=== PATIENT | male | born 1940 | race Caucasian/White ===

== ENCOUNTER 2017-06-11 11:08 | Emergency (ER) | payer OTHER ==
[~2017-06-11] VITALS: Ht 182.9 cm; Wt 100.0 kg
[~2017-06-11 11:08] MED LIST: AMLO2.5T PO; ASPI81TA82 PO; ENAL20TA PO; FOLI1TAB PO; ISOS20TA38 PO; METO25 PO; NITR0.4S SL; PYRI100T4 PO; RIVA15 PO; ROSU40 PO
[2017-06-11 11:11] VITALS: BP 147/65; PULSE 58; RESP 20; O2SAT 58; O2SAT 97
[2017-06-11 11:16] VITALS: BP 136/62; PULSE 73; RESP 18; O2SAT 99
[2017-06-11 11:27] VITALS: O2SAT 100
[2017-06-11] MEDS ORDERED: SODIUM CHLORIDE 0.9% FLUSH 10 ML FLUSH IVF PRN (11:30)
--- NOTE | 2017-06-11 11:33 | PD ---
HPI Chief Complaint: Syncope/Near-Syncope Time Seen by Provider: 11:23 Travel History International Travel<30 days: No Contact w/Intl Traveler<30days: No Traveled to known affect area: No History of Present Illness HPI Patient is a 76-year-old male presenting to department via private vehicle for evaluation of a syncopal episode. Patient was in restoration this morning seated in a pew, when he then slumped over in the pew, per his 's report he was not responding. She stated that her son tried to arouse him by shaking his head and he would not respond. Patient states that for the last few days, since night he has not been feeling well. He reports nasal congestion and flulike symptoms, mild shortness of breath and a cough. Denies any fever, nausea, vomiting, abdominal pain. He had one loose stool yesterday and he has felt more tired. Patient's past medical history significant for hypertension, hyperlipidemia, coronary artery disease with stent placement, a [place] 12 years ago , COPD, CHF, GERD, bilateral pulmonary embolisms. Patient denies any chest pain now or prior to the syncopal episode. PFSH Past Medical History Hx Anticoagulant Therapy: Yes (aspirin) Arthritis: Yes Cancer: Yes ( MELANOMA) Cardiac Catheterization: Yes High Cholesterol: Yes Chemotherapy: Yes (5 WEEKS 2004) Congestive Heart Failure: Yes COPD: Yes Cerebrovascular Accident: No Coronary Artery Disease: Yes Diabetes: No Endocrine: No GERD: Yes Genitourinary: No Hypertension: Yes Kidney Stones: No Musculoskeletal: No Neurologic: No Psychiatric: No Reproductive: No Respiratory: No Migraines: No Myocardial Infarction: Yes Radiation Therapy: Yes (2004) Renal Failure: No Seizures: No Sleep Apnea: No Past Surgical History Cardiac Surgery: Yes (3 STENTS PLACED) Other Surgery: Yes (REMOVAL OF EAR MELANOMA, L ANKLE MELANOMA REMOVAL) Family History Family Myocardial Infarction: Yes (MOTHER AND BROTHER 50 WITH [place] ) Social History Alcohol Use: Yes (OCC MIX DRINKS) Tobacco Use: Yes ((1/2) POUCH PER DAY-DIP) Substance Use: No Allergies-Medications (Allergen,Severity, Reaction): Coded Allergies: No Known Allergies (Verified , 06/11/17) Reported Meds & Prescriptions Reported Meds & Active Scripts Active Review of Systems Except as stated in HPI: all other systems reviewed are Neg General / Constitutional: Positive: Other (increased fatigue), No: Fever, Chills HENT: No: Headaches Cardiovascular: No: Chest Pain or Discomfort Respiratory: Positive: Cough, Shortness of Breath Gastrointestinal: Positive: Changes in Bowel Habits, No: Nausea, Vomiting, Abdominal Pain Genitourinary: No: Dysuria Musculoskeletal: No: Myalgias Neurologic: Positive: Weakness, Syncope, No: Focal Abnormalities Physical Exam Narrative GENERAL: Well-developed, well-nourished, alert elderly male. Resting comfortably in no acute distress. SKIN: Warm and dry. HEAD: Atraumatic. Normocephalic. EYES: Pupils equal and round. No scleral icterus. No injection or drainage. ENT: No nasal bleeding or discharge. Mucous membranes pink and moist. NECK: Trachea midline. No JVD. CARDIOVASCULAR: Regular rate and rhythm. RESPIRATORY: No accessory muscle use. Clear to auscultation. Breath sounds equal bilaterally. GASTROINTESTINAL: Abdomen soft, non-tender, nondistended. Hepatic and splenic margins not palpable. Positive bowel sounds, no rebound, no guarding. MUSCULOSKELETAL: Extremities without clubbing, cyanosis, or edema. No obvious deformities. NEUROLOGICAL: Awake and alert. No obvious cranial nerve deficits. Motor grossly within normal limits. Five out of 5 muscle strength in the arms and legs. Normal speech. PSYCHIATRIC: Appropriate mood and affect; insight and judgment normal. Data Data Last Documented VS Vital Signs Date Time Temp Pulse Resp B/P (MAP) Pulse Ox O2 Delivery O2 Flow Rate FiO2 06/11/17 16:49 64 18 138/69 (92) 98 Room Air Orders Orders Complete Blood Count With Diff (06/11/17 11:21) Comprehensive Metabolic Panel (06/11/17 11:21) Magnesium (Mg) (06/11/17 11:21) Ckmb (Isoenzyme) Profile (06/11/17 11:21) Troponin I (06/11/17 11:21) Act Partial Throm Time (Ptt) (06/11/17 11:21) Prothrombin Time / Inr (Pt) (06/11/17 11:21) Urinalysis - C+S If Indicated (06/11/17 11:21) Chest, Single Ap (06/11/17 11:21) Ecg Monitoring (06/11/17 11:21) Iv Access Insert/Monitor (06/11/17 11:21) Oximetry (06/11/17 11:21) Sodium Chloride 0.9% Flush (Ns Flush) (06/11/17 11:30) Ct Brain W/O Iv Contrast(Rout) (06/11/17 ) Influenzae A/B Antigen (06/11/17 11:21) Ct Pulmonary Angiogram (06/11/17 ) Iohexol 350 Inj (Omnipaque 350 Inj) (06/11/17 15:34) Electrocardiogram (06/11/17 11:18) Labs Laboratory Tests Test 06/11/17 11:30 06/11/17 12:10 White Blood Count 6.9 TH/MM3 Red Blood Count 4.73 MIL/MM3 Hemoglobin 15.8 GM/DL Hematocrit 44.8 % Mean Corpuscular Volume 94.8 FL Mean Corpuscular Hemoglobin 33.3 PG Mean Corpuscular Hemoglobin Concent 35.1 % Red Cell Distribution Width 13.7 % Platelet Count 217 TH/MM3 Mean Platelet Volume 8.4 FL Neutrophils (%) (Auto) 73.4 % Lymphocytes (%) (Auto) 13.5 % Monocytes (%) (Auto) 10.5 % Eosinophils (%) (Auto) 1.9 % Basophils (%) (Auto) 0.7 % Neutrophils # (Auto) 5.1 TH/MM3 Lymphocytes # (Auto) 0.9 TH/MM3 Monocytes # (Auto) 0.7 TH/MM3 Eosinophils # (Auto) 0.1 TH/MM3 Basophils # (Auto) 0.0 TH/MM3 CBC Comment DIFF FINAL Differential Comment Prothrombin Time 10.8 SEC Prothromb Time International Ratio 1.0 RATIO Activated Partial Thromboplast Time 25.7 SEC Blood Urea Nitrogen 14 MG/DL Creatinine 1.27 MG/DL Random Glucose 171 MG/DL Total Protein 7.2 GM/DL Albumin 3.5 GM/DL Calcium Level 8.8 MG/DL Magnesium Level 2.1 MG/DL Alkaline Phosphatase 79 U/L Aspartate Amino Transf (AST/SGOT) 19 U/L Alanine Aminotransferase (ALT/SGPT) 23 U/L Total Bilirubin 0.6 MG/DL Sodium Level 139 MEQ/L Potassium Level 4.2 MEQ/L Chloride Level 106 MEQ/L Carbon Dioxide Level 27.2 MEQ/L Anion Gap 6 MEQ/L Estimat Glomerular Filtration Rate 55 ML/MIN Total Creatine Kinase 65 U/L Troponin I LESS THAN 0.02 NG/ML Urine Color YELLOW Urine Turbidity CLEAR Urine pH 5.5 Urine Specific [place] 1.020 Urine Protein TRACE mg/dL Urine Glucose (UA) NEG mg/dL Urine Ketones NEG mg/dL Urine Occult Blood NEG Urine Nitrite NEG Urine Bilirubin NEG Urine Urobilinogen LESS THAN 2.0 MG/DL Urine Leukocyte Esterase NEG Urine RBC LESS THAN 1 /hpf Urine WBC 2 /hpf Urine Squamous Epithelial Cells <1 /hpf Urine Hyaline Casts 1 /lpf Urine Mucus FEW /lpf Microscopic Urinalysis Comment CULT NOT INDICATED MDM Medical Decision Making Medical Screen Exam Complete: Yes Emergency Medical Condition: Yes Medical Record Reviewed: Yes Interpretation(s) Vital Signs Date Time Temp Pulse Resp B/P (MAP) Pulse Ox O2 Delivery O2 Flow Rate FiO2 06/11/17 11:21 58 20 100 Room Air 06/11/17 11:16 73 18 136/62 (86) 99 06/11/17 11:11 58 20 147/65 (92) 97 Room Air Differential Diagnosis Influenza versus cardiac arrhythmia versus metabolic abnormality versus less likely pulmonary embolism versus viral syndrome versus other Narrative Course Patient is a 76-year-old male that was brought to emergency department via private vehicle for evaluation after syncopal episode occurred at restoration just prior to arrival. Patient is mildly bradycardic, he is alert and oriented. Patient placed on telemetry monitoring, continuous pulse oximetry. IV access established. Labs and imaging ordered and pending. at bedside. EKG shows sinus rhythm with a rate of 60, this was read by my attending physician. Chest x-ray read by the radiologist shows no acute disease, CT scan of the brain read by the radiologist shows no acute abnormality. CBC reviewed, no acute findings identified Chemistry with no acute findings, cardiac enzymes are negative 1 set Urinalysis is unremarkable. Patient's initial workup was unremarkable, he will be placed under observation due to syncopal episode. [facility] paged for admission. Discussed with Dr. Royal who felt that due to the unremarkable work-up, that patient would be more suited for discharge at this time. Due to hx of PE, Dr. Mccloud recommended CT pulmonary angiogram be obtained to ensure that this is not the cause of the syncopal episode. Order placed. CT Pulmonary angiogram is negative for PE, pt does have 2 nodules that are recommended to be followed up with a [address] scan of the chest. Pt was ambulated in the ED, he demonstrated safe ambulation and did not experience any dizziness. At this time pt will be discharged home. He is advised to follow up with PCP in 1-2 days. Diagnosis Primary Impression: Syncope Qualified Codes: R55 - Syncope and collapse Referrals: Primary Care Physician 2 days Patient Instructions: General Instructions Additional Instructions: Follow-up with your primary doctor in 1-2 days Maintain adequate fluid intake, rest as needed Return to emergency department for any new or worsening symptoms Med/Other Pt SpecificInfo: No Change to Meds Disposition: 01 DISCHARGE HOME Condition: Stable Zeina Herbert Jun 11, 2017 11:33
--- NOTE | 2017-06-11 11:48 | RADRPT ---
EXAM DATE/TIME: 06/11/2017 11:24 [facility] COMPARISON: CHEST SINGLE AP, October 15, 2014, 21:39. INDICATIONS : Palpitations MEDICAL HISTORY : Cardiovascular disease. SURGICAL HISTORY : Coronary artery stent. ENCOUNTER: Initial ACUITY: 1 day PAIN SCORE: 0/10 LOCATION: chest FINDINGS: Portable AP view of the chest demonstrates a normal-sized cardiac silhouette. No effusion, consolidat ion, or pneumothorax is visualized. The bones and soft tissues demonstrate no acute abnormality. CONCLUSION: No acute cardiopulmonary abnormality is identified. Amado Landaverde MD on June 11, 2017 at 11:46 Board Certified Radiologist. This report was verified electronically.
[2017-06-11 11:52] LABS: AUTOMATED NEUTROPHIL # 5.1 TH/MM3 (1.8-7.7); BASOPHIL % 0.7 % (0.0-2.0); EOSINOPHIL # 0.1 TH/MM3 (0-0.4); EOSINOPHIL % 1.9 % (0.0-4.0); HEMATOCRIT 44.8 % (39.0-51.0); HEMO FLAGS DIFF FINAL; LYMPH % 13.5 % (9.0-44.0); LYMPHOCYTE # 0.9 TH/MM3 (1.0-4.8); MEAN CELL VOLUME 94.8 FL (80.0-100.0); MEAN CORPUSCULAR HEMOGLOBIN 33.3 PG (27.0-34.0); MEAN CORPUSCULAR HGB CONC 35.1 % (32.0-36.0); MONO % 10.5 % (0.0-8.0); NEUT % 73.4 % (16.0-70.0); PLATELET COUNT 217 TH/MM3 (150-450); RED BLOOD COUNT 4.73 MIL/MM3 (4.50-5.90); RED CELL DISTRIBUTION WIDTH 13.7 % (11.6-17.2); WHITE BLOOD COUNT 6.9 TH/MM3 (4.0-11.0)
[2017-06-11 12:02] LABS: APTT (PATIENT) 25.7 SEC (24.3-30.1); PROTHROMBIN TIME - PATIENT 10.8 SEC (9.8-11.6)
--- NOTE | 2017-06-11 12:04 | RADRPT ---
EXAM DATE/TIME: 06/11/2017 11:37 [facility] COMPARISON: No previous studies available for comparison. INDICATIONS : Syncopal episode today. RADIATION DOSE: 40.38 CTDIvol (mGy) ; Patient motion MEDICAL HISTORY : Hypertension. melanoma SURGICAL HISTORY : None. ENCOUNTER: Initial ACUITY: 1 day PAIN SCALE: 0/10 LOCATION: Bilateral head TECHNIQUE: Multiple contiguous axial images were obtained of the head. Using automated exposure control and adj ustment of the mA and/or kV according to patient size, radiation dose was kept as low as reasonably a chievable to obtain optimal diagnostic quality images. DICOM format image data is available electro nically for review and comparison. FINDINGS: There is motion artifact CEREBRUM: The ventricles are within normal limits. No evidence of midline shift, mass lesion, hemorrhage or ac tonto apache infarction. No extra-axial fluid collections are seen. POSTERIOR FOSSA: The cerebellum and brainstem demonstrate no acute finding. The 4th ventricle is midline. The cerebe llopontine angle is unremarkable. EXTRACRANIAL: The sinuses are clear. SKULL: The calvaria is intact. No evidence of skull fracture. CONCLUSION: No acute intracranial abnormality is identified. Amado Landaverde MD on June 11, 2017 at 12:01 Board Certified Radiologist. This report was verified electronically.
[2017-06-11 12:16] LABS: ALKALINE PHOSPHATASE 79 U/L (45-117); ALT (GPT) 23 U/L (12-78); ANION GAP 6 MEQ/L (5-15); AST (GOT) 19 U/L (15-37); BICARBONATE 27.2 MEQ/L (21.0-32.0); BLOOD UREA NITROGEN 14 MG/DL (7-18); CHLORIDE 106 MEQ/L (98-107); GLOMERULAR FILTRATION RATE 55 ML/MIN (>89); MAGNESIUM 2.1 MG/DL (1.5-2.5); POTASSIUM 4.2 MEQ/L (3.5-5.1); SODIUM (NA) 139 MEQ/L (136-145); TOTAL BILIRUBIN ADULT 0.6 MG/DL (0.2-1.0)
[2017-06-11 12:18] LABS: CREATINE KINASE 65 U/L (39-308)
[2017-06-11 12:52] LABS: BLOOD, URINE NEG (NEG); COMMENT (UR) CULT NOT INDICATED; CULTURE IF INDICATED CULT NOT INDICATED; GLUCOSE,URINE NEG (NEG); HYALINE CAST, URINE 1 /lpf (RARE); KETONE, URINE NEG (NEG); MUCUS URINE FEW /lpf (OCC); NITRITE,URINE NEG (NEG); PH, URINE 5.5 (5.0-8.5); SQUAMOUS EPITHELIAL CELL URINE <1 /hpf (0-5); URINE COLOR YELLOW (YELLW/STRAW)
[2017-06-11] MEDS ORDERED: IOHEXOL 350 MG/ML 10 ML VIAL (for RAD DIAG) IV PUSH ONE (15:34)
--- NOTE | 2017-06-11 16:37 | RADRPT ---
EXAM DATE/TIME: 06/11/2017 15:28 [facility] COMPARISON: CT PULMONARY ANGIOGRAM, October 16, 2014, 9:44. INDICATIONS : Short of breath with syncope. IV CONTRAST: 75 cc Omnipaque 350 (iohexol) IV RADIATION DOSE: 23.29 CTDIvol (mGy) MEDICAL HISTORY : Cardiovascular disease. Hypertension. Melanoma cancer, Cardiac, Radiation therapy. SURGICAL HISTORY : None. ENCOUNTER: Initial ACUITY: 1 day PAIN SCALE: 3/10 LOCATION: Bilateral chest TECHNIQUE: Volumetric scanning of the chest was performed using a pulmonary embolism protocol MIP images were re constructed. Using automated exposure control and adjustment of the mA and/or kV according to patien t size, radiation dose was kept as low as reasonably achievable to obtain optimal diagnostic quality images. DICOM format image data is available electronically for review and comparison. Follow-up recommendations for detected pulmonary nodules are based at a minimum on nodule size and pa tient risk factors according to Fleischner Society Guidelines. FINDINGS: PULMONARY ARTERIES: No filling defects are seen in the pulmonary arteries through the segmental level. LUNGS: There is no consolidation or pneumothorax . There is a 7 x 6 mm noncalcified pulmonary nodule in the right lower lobe abutting the fissure best seen on axial image #61. There is a smaller 3 mm noncalcif ied nodule in the right lower lobe as well. They're no larger masses or areas of consolidation. PLEURAE: There is no pleural thickening or pleural effusion. MEDIASTINUM: There is good visualization of the great vessels of the middle mediastinum. No evidence of mediastin al or hilar adenopathy/mass. There are coronary artery calcifications and a stent catheter. MUSCULOSKELETAL: Within normal limits for patient age. MISCELLANEOUS: The visualized upper abdominal organs demonstrate no acute abnormality. There is a small cyst again n oted in the right lobe of the liver. CONCLUSION: 1. No evidence of pulmonary embolism. 2. 2 small noncalcified right pulmonary nodules which are nonspecific. 6 month followup noncontrast C T is recommended. 3. Coronary artery calcifications and stent catheter. Behzad Mckenzie MD on June 11, 2017 at 16:33 Board Certified Radiologist. This report was verified electronically.
[2017-06-11 16:49] VITALS: BP 138/69; PULSE 64; RESP 18; O2SAT 98
--- NOTE | 2017-06-12 15:56 | EKG ---
Date Performed: 06/11/2017 Time Performed: 11:18:09 PTAGE: 76 years EKG: Sinus rhythm MARKED LEFT AXIS DEVIATION LOW QRS VOLTAGE IN PRECORDIAL LEADS ANTERIOR MYOCARDIAL INFARCTION ACU TE WY Possible inferior myocardial infarction, age undetermined PREVIOUS TRACING : 10/16/2014 03.40 DOCTOR: Maxim Pena Interpretating Date/Time 06/12/2017 15:55:27
== END 2017-06-11 17:38 | disposition home or self-care (01) ==
LOC: NEPC 11:08
DX: R55 Syncope and collapse (principal); R06.02 Shortness of breath; E78.00 Pure hypercholesterolemia, unspecified; I50.9 Heart failure, unspecified; I11.0 Hypertensive heart disease with heart failure; J44.9 Chronic obstructive pulmonary disease, unspecified; I25.10 Atherosclerotic heart disease of native coronary artery without angina pectoris; I25.2 Old myocardial infarction; F17.220 Nicotine dependence, chewing tobacco, uncomplicated; R94.31 Abnormal electrocardiogram [ECG] [EKG]; Z79.01 Long term (current) use of anticoagulants; Z86.711 Personal history of pulmonary embolism; K21.9 Gastro-esophageal reflux disease without esophagitis; Z95.5 Presence of coronary angioplasty implant and graft
CPT/HCPCS: 70450; 71010; 71275; 80053; 81001; 82550; 83735; 84484; 85025; 85610; 85730; 87804; 93005; 99285; Q9967

== ENCOUNTER 2017-08-25 05:55 | Day surgery (SDC) | payer OTHER ==
[2017-08-25] MEDS ORDERED: NO Heparin, Lovenox, Coumadin at least 12 hours prior to procedure. PRN (06:30)
[2017-08-25] MEDS ORDERED: MUPIROCIN 2% OINT 1 APPLIC/GM SYR NASAL SCH (06:30)
[2017-08-25] MEDS ORDERED: ceFAZolin 2 GM PREMIX 50 ML IV SCH (06:30)
[2017-08-25] MEDS ORDERED: NS 1000 ML IV SCH (06:30)
[2017-08-25] MEDS ORDERED: POVIDONE IODINE 5% (ANTISEPSIS KIT) 4 APPLICATIONS EACH NARE SCH (06:30)
[2017-08-25] MEDS ORDERED: NITR0.4S SL (06:57)
[2017-08-25] MEDS ORDERED: ASPI81TA23 PO (06:57)
[2017-08-25] MEDS ORDERED: FOLIPOW21 PO (06:57)
[2017-08-25] MEDS ORDERED: IPRAAER INH (06:57)
[2017-08-25] MEDS ORDERED: ENAL20TA PO (06:57)
[2017-08-25] MEDS ORDERED: ISOS30TA3 PO (06:57)
[2017-08-25] MEDS ORDERED: METO50TA PO (06:57)
[2017-08-25] MEDS ORDERED: NORV2.5T PO (06:57)
[2017-08-25] MEDS ORDERED: ROSU20 PO (06:57)
[2017-08-25] MEDS: CHLORHEXIDINE GLUCONATE 2 % 1 PACK (2 CLOTHS) TOPICAL SCH ×2 (08:15→09:06)
--- NOTE | 2017-08-25 08:22 | MA ---
cc: NUNO LIZARRAGA MD DATE 08/25/[address] Nuno Lizarraga PROCEDURES PERFORMED 1. 15 minutes of moderate IV sedation. 2. Loop recorder insertion. DESCRIPTION OF PROCEDURE The patient was brought to the DOC unit in the postabsorptive state. After informed consent was obtained, 2 mg of Versed and 15 mcg of Fentanyl was given for moderate IV sedation. Next, a [employer] LINQ loop recorder was inserted subcutaneously in the left chest. The patient tolerated the procedure well without any apparent complications. Tachybrady pause and atrial fibrillation detection was enabled. The initial R-wave was 0.27 mV. The serial number was [id number]. MD ROB [place]/NARA /8:12 AM /8:18 AM
[2017-08-25] MEDS ORDERED: MIDAZOLAM HCL 5 MG/ML VIAL (1 ML) ONE (09:08)
== END 2017-08-25 09:45 | disposition home or self-care (01) ==
LOC: HCAT 05:55 → HDIC 05:55 → HCAT 09:45
PROVIDERS: ATTEND Nuclear Medicine Nuclear Cardiology
DX: R55 Syncope and collapse (principal); I25.118 Atherosclerotic heart disease of native coronary artery with other forms of angina pectoris; I42.9 Cardiomyopathy, unspecified; I11.0 Hypertensive heart disease with heart failure; I50.22 Chronic systolic (congestive) heart failure; E78.5 Hyperlipidemia, unspecified; J44.9 Chronic obstructive pulmonary disease, unspecified; K21.9 Gastro-esophageal reflux disease without esophagitis; I25.2 Old myocardial infarction; G62.9 Polyneuropathy, unspecified; I26.99 Other pulmonary embolism without acute cor pulmonale; R06.02 Shortness of breath; F17.220 Nicotine dependence, chewing tobacco, uncomplicated; Z86.010 Personal history of colon polyps
CPT/HCPCS: 33282; C1764; J0690; J2250; J3010

== ENCOUNTER 2017-11-22 12:44 | Day surgery (SDC) | payer OTHER ==
[~2017-11-22] VITALS: Ht 182.9 cm; Wt 97.5 kg
[~2017-11-22 12:44] MED LIST changes: -AMLO2.5T PO; +ASPI81TA23 PO; -ASPI81TA82 PO; -FOLI1TAB PO; +FOLIPOW21 PO; +IPRAAER INH; -ISOS20TA38 PO; +ISOS30TA3 PO; -METO25 PO; +METO50TA PO; +NORV2.5T PO; +PROPOFOL 200 MG/20 ML AMP IV ONE; -PYRI100T4 PO; -RIVA15 PO; +ROSU20 PO; -ROSU40 PO
[2017-11-22] MEDS ORDERED: IODIXANOL 320 MG/ML 50 ML VIAL (for Cath Lab) OTHER ONE (12:45)
[2017-11-22] MEDS ORDERED: LACTATED RINGER'S 1000 ML IV PRN (14:00)
[2017-11-22] MEDS ORDERED: NS 1000 ML IV SCH (14:00)
[2017-11-22] MEDS ORDERED: SODIUM CHLORID 0.9% 500 ML IV PRN (14:00)
[2017-11-22] MEDS ORDERED: POVIDONE IODINE 5% (ANTISEPSIS KIT) 4 APPLICATIONS EACH NARE PRN (14:15)
[2017-11-22] MEDS ORDERED: MUPIROCIN 2% OINT 1 APPLIC/GM SYR NASAL SCH (14:15)
[2017-11-22] MEDS ORDERED: CHLORHEXIDINE GLUCONATE 2 % 1 PACK (2 CLOTHS) TOPICAL PRN (14:15)
[2017-11-22] MEDS ORDERED: POVIDONE IODINE 5% (ANTISEPSIS KIT) 4 APPLICATIONS EACH NARE SCH (14:15)
[2017-11-22] MEDS ORDERED: METOPROLOL TARTRATE 25 MG TAB PO PRN (14:15)
[2017-11-22] MEDS ORDERED: ceFAZolin 2 GM PREMIX 50 ML IV SCH (14:15)
[2017-11-22] MEDS ORDERED: NO Heparin, Lovenox, Coumadin at least 12 hours prior to procedure. PRN (14:15)
[2017-11-22] MEDS ORDERED: VANCOMYCIN 1000 MG/NS 250 ML IV SCH ×2 (14:15)
[2017-11-22] MEDS ORDERED: CHLORHEXIDINE GLUCONATE 2 % 1 PACK (2 CLOTHS) TOPICAL SCH (14:15)
[2017-11-22 14:25] VITALS: BP 151/64; PULSE 56; RESP 18; TEMP 97.5; O2SAT 100
[2017-11-22 14:33] LABS: AUTOMATED NEUTROPHIL # 3.4 TH/MM3 (1.8-7.7); BASOPHIL % 0.8 % (0.0-2.0); EOSINOPHIL # 0.1 TH/MM3 (0-0.4); EOSINOPHIL % 1.6 % (0.0-4.0); HEMATOCRIT 44.7 % (39.0-51.0); HEMOGLOBIN 15.2 GM/DL (13.0-17.0); LYMPH % 18.8 % (9.0-44.0); LYMPHOCYTE # 0.9 TH/MM3 (1.0-4.8); MEAN CELL VOLUME 94.6 FL (80.0-100.0); MEAN CORPUSCULAR HEMOGLOBIN 32.2 PG (27.0-34.0); MEAN PLATELET VOLUME 7.7 FL (7.0-11.0); MONO % 9.8 % (0.0-8.0); MONOCYTE # 0.5 TH/MM3 (0-0.9); PLATELET COUNT 256 TH/MM3 (150-450); RED BLOOD COUNT 4.72 MIL/MM3 (4.50-5.90); RED CELL DISTRIBUTION WIDTH 14.2 % (11.6-17.2); WHITE BLOOD COUNT 4.9 TH/MM3 (4.0-11.0)
[2017-11-22] MEDS ORDERED: MULT-65 PO (14:39)
[2017-11-22] MEDS ORDERED: PANT40TA3 PO (14:39)
[2017-11-22 14:41] LABS: PROTHROMBIN TIME - PATIENT 10.5 SEC (9.8-11.6)
[2017-11-22 14:54] LABS: BICARBONATE 28.7 MEQ/L (21.0-32.0); CREATININE 1.17 MG/DL (0.60-1.30)
[2017-11-22] MEDS ORDERED: MIDAZOLAM HCL 5 MG/5 ML VIAL ONE (17:40)
[2017-11-22] MEDS ORDERED: HEPARIN-NS/PF FLUSH BAG 1,000 ML IV FLUSH ONE (17:43)
[2017-11-22] MEDS ORDERED: HEPARIN SODIUM - IV 10,000 UNITS/10 ML VIAL ONE (18:09)
--- NOTE | 2017-11-22 18:38 | CATHPROC ---
Patient Name: MATT JOHNS Study #: [id number] Initial MD: Isidro Vega Date of : 1940 Study Date: 11/22/2017 Cardiac Catheterization Report 11/22/2017 6:38:23 PM Financial #: [id number] 1 of 7 Patient Name: MATT JOHNS Study #: [id number] Initial MD: Isidro Vega Date of : 1940 Study Date: 11/22/2017 Entire Case Report Patient Information Patient Name MATT JOHNS Date of 1940 Age 76 years Financial # [id number] Gender M AlternateID Lab Number 6 Room Number DC03 Height (in) 70.0 Height (cm) 177.8 BSA 2.15 Weight (lbs) 214.3 Weight (kg) 97.4 Patient Address/Phone Number Home Address [facility] Home Phone Number [phone] [facility] [id number] Study Information Study Number Admission Scheduled Start Study Start [id number] Nov 22 2017 12:44PM 11/22/2017 Nov 22 2017 5:51PM [facility] Cardiac Catheterization Admit Source Facility Department Other [facility] Physician and Clinical Staff Initial Isidro Rodriguez Hand Shoes Sewer Dilan FergusonRT(R) Other Anesthesia, STEEL DETAILER Recorder Angelic Fields,JOHNNY Scrub Ashley Stafford,RT(R) TECH2 11/22/2017 6:38:23 PM Financial #: [id number] 2 of 7 Patient Name: MATT JOHNS Study #: [id number] Initial MD: Isidro Vega Date of : 1940 Study Date: 11/22/2017 Equipment Time Category Analyst Description Size Mfg Part Number Used/Scraped [id number] 17:56 COOK/PACER DILATOR SET (MICRA) FR8-12 Used *[id number] WIRE, GUIDE AMPLATZ STIFF [id number] 17:56 COOK/PACER 3MMJ Used 180CM *[id number] 17:56 MEDLINE INDUSTRIES PACK, CCL CUSTOM * Used *[id number] 17:56 MEDLINE PACER TORRES, LIMB * 2530 *[id number] Used [id number] 17:56 NAMIC TUBING, HIGH PRESSURE 20" 20" Used *[id number] 17:56 NYCOMED OMNIPAQUE, 300 MG, 50ML 50ML [id number] Used SUTURE, 0 ETHIBOND [CT1] (CX21D), 8pk [id number] 17:56 YOUNGBLOOD MEDICAL BLANKET,WARM AIR CCL * Used *[id number] 17:56 VITATRON MEDTRONIC MONITOR, PACEMAKER\\ICD 44839 *[id number] Used SYSTEM, TRANS-CATHETER [id number] 17:56 VITATRON MEDTRONIC Used PACING (MICRA) *[id number] Insurance Information Insurance Payor Private Health Insurance Third Republican Third Republican Number [place] [facility] History: Risk Factors Family History of Hypertension Dyslipidemia Previous RI Previous Heart Failure Premature CAD Yes Yes Yes Yes Yes Medication Medication Total Dose (Bolus/Oral) Medication Total Dosage/Unit 2% XYLOCAINE 100 mL HEPARIN 3000 units 11/22/2017 6:38:23 PM Financial #: [id number] Patient Name: MATT JOHNS Study #: [id number] Initial MD: Isidro Vega Date of : 1940 Study Date: 11/22/2017 Medications (Bolus/Oral) Medication Time Given Dosage/Unit Administered By Reason 2% XYLOCAINE 11/22/2017 6:05:06 PM 50 mL Isidro Vega 50 mL 2% XYLOCAINE given in lab by Isidro Vega in Right Groin via Subcutaneous. HEPARIN 11/22/2017 6:08:54 PM 3000 units Isidro Vega 3000 units HEPARIN given in lab by Isidro Vega via Peripheral IV. 2% XYLOCAINE 11/22/2017 6:26:33 PM 50 mL Isidro Vega 50 mL 2% XYLOCAINE given in lab by Isidro Vega in Left shoulder via Subcutaneous. LEFT UPPER CHEST Initial Case Assessment Cardiovascular HR Rhythm NIBP Chest Pain 63 sr 144/81 0 Edema Present Skin color Skin None Normal Warm Dry Circulatory - Right Pulses Dorsalis Pedis 1 Scale (0,1,2,3,4,d) Circulatory - Left Pulses Dorsalis Pedis 1 Scale (0,1,2,3,4,d) Neurological State Oriented to time-place- Alert Moves all extremities person Respiration - General Respiration Rate SpO2 (%) O2 (lpm) (B/min) 18 99 2 11/22/2017 6:38:23 PM Financial #: [id number] of 7 Patient Name: MATT JOHNS Study #: [id number] Initial MD: Isidro Vega Date of : 1940 Study Date: 11/22/2017 Final Case Assessment Cardiovascular HR Rhythm NIBP Chest Pain 81 SR 105/56 0 Edema Present Skin color Skin None Normal Warm Dry Circulatory - Right Pulses Dorsalis Pedis 1 Scale (0,1,2,3,4,d) Circulatory - Left Pulses Dorsalis Pedis 1 Scale (0,1,2,3,4,d) Neurological State Oriented to time-place- Alert Moves all extremities person Respiration - General Respiration Rate SpO2 (%) O2 (lpm) (B/min) 18 99 2 Chronological Log Time Study Chronological Log 17:45:02 Patient Name, D.O.B, / Armband Verified By R.N. 17:45:21 Patient arrived via Bed. 17:45:50 Anesthesia at bedside. Assumes care of patient. See records for all meds and vitals during procedure. 17:53:58 Patient has been NPO for More than 6Hrs. 17:53:59 Skin Breakdown- right forearm scab 17:54:12 Patient Warmer Placed on the Table. 17:54:13 Disposable Defibrillator Pads Placed On Patient. 17:54:13 Jalen Prominences Protected 17:54:14 IV Warmer Connected To Patient. 17:54:15 A # 20 IV was noted in the Antecubital (left). Grade = 0 17:54:26 A # 20 IV was noted in the Antecubital (right). Grade = 0 17:54:41 History and physical on the chart or being dictated. 11/22/2017 6:38:23 PM Financial #: [id number] 5 of 7 Patient Name: MATT JOHNS Study #: [id number] Initial MD: Isidro Vega Date of : 1940 Study Date: 11/22/2017 Assessment: Initial Case, HR=63 BPM, Rhythm=sr, LKTZ=493/81 mmhg, Chest Pain=0, Edema=None, Col or=Normal, Skin = Warm, Dry Right Pulses: Trent Ped=1 17:54:41 Left Pulses: Trent Ped=1 Neurological: State=Alert, Ox3, ADAM Respiration: Resp=18 B/min, SpO2=99 %, O2=2 lpm 17:55:17 Bilateral groins prepped with 2% chlorhexidine, and draped after a 3 minute waiting time. 17:55:25 MD paged Time Out. Correct patient, procedure, procedure equipment, site and side verified with physicia n present. Time 18:03:00 concurred by MD, individual staff and STEEL DETAILER. Time Out #2 - Consents verified, patient in correct position, all results are labled and displa yed, safety precautions 18:03:50 taken, antibiotics administered. Time out concurred by MD, individual staff and STEEL DETAILER in procedu re 18:04:45 Case Start 18:05:06 50 mL 2% XYLOCAINE given in lab by Isidro Vega in Right Groin via Subcutaneous. 18:05:18 Vascular access was obtained in the Fem Vein (right). 18:05:35 Reference ECG taken 18:05:56 A DILATOR SET (MICRA) FR8-12 was advanced into the Fem Vein (right) using the Modified Seld jose alberto technique. 18:08:54 3000 units HEPARIN given in lab by Isidro Vega via Peripheral IV. 18:09:09 DELIVERY SYSTEM INSERTED 18:14:44 MICRA DEPLOYED 18:15:41 IMPEDANCE TESTED NO CAPTURE NOTED 18:17:01 REPOSITION MICRA IN PROCESS 18:21:24 Lead placement verified under fluoroscopy 18:21:28 The RV lead impedance and threshold being tested. 18:22:48 MICRA DEPLOYED CAPTURE NOTED SYSTEM REMOVED 18:23:19 FIGURE 8 KNOT CREATED MANUAL PRESURE HELD TO SITE X20 MINS BY ASHLEY Newell 18:24:28 DOUBLE PREPPING CHEST FOR LOOP REMOVEAL BY DR VEGA 18:26:33 50 mL 2% XYLOCAINE given in lab by Isidro Vega in Left shoulder via Subcutaneous. LEFT UP PER CHEST 18:27:08 Loop Recorder Removed. 18:27:16 Surgical Incision Made. 18:28:31 PRESSURE HELD TO SITE 18:29:04 Steri-strips and a sterile dressing applied to site. 18:29:05 Case End 18:29:20 Implant Procedure was performed. 18:30:11 A PPM Implant . (Single) MICRA Assessment: Final Case, HR=81 BPM, Rhythm=SR, QRDT=611/56 mmhg, Chest Pain=0, Edema=None, Color =Normal, Skin = Warm, Dry Right Pulses: Trent Ped=1 18:35:56 Left Pulses: Trent Ped=1 Neurological: State=Alert, Ox3, ADAM Respiration: Resp=18 B/min, SpO2=99 %, O2=2 lpm 18:36:41 Sterile dressing applied to site 18:36:42 No case complications noted. 11/22/2017 6:38:23 PM Financial #: [id number] Patient Name: MATT JOHNS Study #: [id number] Initial MD: Isidro Vega Date of : 1940 Study Date: 11/22/2017 18:36:43 Cine recording checked. 18:36:47 Bedside Report will be given. 18:37:15 Implantable Device card placed in patient's chart. 18:37:17 DOCU called. Spoke to DAIANA 18:37:32 Defibrillator and ground pads removed. Skin intact. 18:37:35 Patient moved to stretcher End Study - Contrast Media Used In Study Contrast Total Opened (mL) Total Used (mL) Total Wasted (mL) Omnipaque 30 30 0 End Study - Radiation Exposure Fluoro Time (minutes) 3.3 End Study - Patient Disposition Complications Transferred To Interventional Outcome No Telemetry Bed successful 11/22/2017 6:38:23 PM Financial #: [id number]
[2017-11-22] MEDS ORDERED: oxyCODONE/ACETAMINOPHEN 5 MG/325 MG TAB PO PRN ×2 (19:00)
[2017-11-22] MEDS ORDERED: PILL SPLITTER OTHER PRN (19:15)
[2017-11-22] MEDS ORDERED: ATORVASTATIN 40 MG TAB PO SCH (21:00)
[2017-11-22] MEDS: METOPROLOL TARTRATE 50 MG TAB PO SCH (21:00)
[2017-11-22] MEDS: ALBUTEROL SULFATE 90 MCG/ACT HFA 18 GM INHALER INH SCH (21:00)
[2017-11-22] MEDS: amLODIPine BESYLATE 5 MG TAB PO SCH (21:00)
[2017-11-22] MEDS: TIOTROPIUM BROMIDE 18 MCG INH INH SCH (21:00)
[2017-11-22 23:00] VITALS: BP 129/76; PULSE 64; RESP 18; TEMP 98.2; O2SAT 97
[2017-11-23] VITALS (10 sets, daily range): BP systolic 120–127; BP diastolic 60–70; PULSE 57–72; RESP 16–18; TEMP 97.6–98.7; O2SAT 96–99
[2017-11-23] MEDS: METOPROLOL TARTRATE 50 MG TAB PO SCH (08:37)
[2017-11-23] MEDS: amLODIPine BESYLATE 5 MG TAB PO SCH (08:37)
[2017-11-23] MEDS: TIOTROPIUM BROMIDE 18 MCG INH INH SCH (08:38)
[2017-11-23] MEDS: ALBUTEROL SULFATE 90 MCG/ACT HFA 18 GM INHALER INH SCH (08:38)
[2017-11-23] MEDS ORDERED: PANTOPRAZOLE SOD 40 MG DELAYED RELEASE TAB PO SCH (09:00)
[2017-11-23] MEDS ORDERED: MULTIVITAMIN TAB PO SCH (09:00)
[2017-11-23] MEDS ORDERED: ENALAPRIL MALEATE 10 MG TAB PO SCH (09:00)
[2017-11-23] MEDS ORDERED: ASPIRIN EC 81 MG TABEC PO SCH (09:00)
[2017-11-23] MEDS ORDERED: ISOSORBIDE MONONITRATE 30 MG CR TAB (IMDUR) PO SCH (09:00)
--- NOTE | 2017-11-23 11:39 | HHI.PR ---
Subjective Remarks Feeling better Objective Vital Signs Date Time Temp Pulse Resp B/P (MAP) Pulse Ox O2 Delivery O2 Flow Rate FiO2 11/23/17 11:18 97.8 63 18 120/60 (80) 98 11/23/17 11:00 62 11/23/17 10:00 57 11/23/17 09:00 62 11/23/17 08:00 60 11/23/17 07:23 97.6 72 18 127/66 (86) 96 11/23/17 07:00 67 11/23/17 04:00 62 11/23/17 03:00 98.7 72 16 122/70 (87) 99 11/23/17 03:00 65 11/23/17 02:00 61 11/22/17 23:00 98.2 64 18 129/76 (93) 97 11/22/17 19:00 100 Room Air 11/22/17 14:25 97.5 56 18 151/64 (93) 100 Result Diagram: 11/22/17 1420 11/22/17 1420 Imaging Alert, fully oriented Lungs: ventilated Heart: S1, S2 regular, no gallop Abdomen: soft, no mass Ext: no edema Current Medications Medications (Trade) Dose Ordered Sig/Tyrell Route Start Time Stop Time Status Last Admin Miscellaneous Information NO Heparin, Loven... UNSCH PRN .XX 11/22/17 14:15 11/26/17 14:14 Sodium Chloride 1,000 ml @ 30 mls/hr Q24H IV 11/22/17 14:00 Cefazolin Sodium/ Dextrose 50 ml @ 100 mls/hr OPERATING ROOM TECHNICIAN IV 11/22/17 14:15 11/25/17 14:14 Vancomycin HCl 1000 mg/Sodium Chloride 250 ml @ 250 mls/hr OPERATING ROOM TECHNICIAN IV 11/22/17 14:15 11/25/17 14:14 (Betadine 5% Antisepsis Kit) 2 applic OPERATING ROOM TECHNICIAN EACH NARE 11/22/17 14:15 11/25/17 14:14 (Bactroban Nasal 2% Oint) 1 applic OPERATING ROOM TECHNICIAN NASAL 11/22/17 14:15 11/25/17 14:14 (Chlorhexidine 2% Cloth) 3 pack OPERATING ROOM TECHNICIAN TOPICAL 11/22/17 14:15 11/25/17 14:14 Lactated Ringer's 1,000 ml @ 30 mls/hr Q24H PRN IV 11/22/17 14:00 11/25/17 13:59 Sodium Chloride 500 ml @ 30 mls/hr [id number] PRN IV 11/22/17 14:00 11/25/17 13:59 (Lopressor) 25 mg OPERATING ROOM TECHNICIAN PRN PO 11/22/17 14:15 11/25/17 14:14 (Betadine 5% Antisepsis Kit) 1 applic OPERATING ROOM TECHNICIAN PRN EACH NARE 11/22/17 14:15 11/25/17 14:14 (Chlorhexidine 2% Cloth) 3 pack OPERATING ROOM TECHNICIAN PRN TOPICAL 11/22/17 14:15 11/25/17 14:14 (Percocet 5-325 Mg) 1 tab Q4H PRN PO 11/22/17 19:00 (Percocet 5-325 Mg) 2 tab Q4H PRN PO 11/22/17 19:00 (Norvasc) 2.5 mg BID PO 11/22/17 21:00 11/23/17 08:37 (Ecotrin Ec) 81 mg DAILY PO 11/23/17 09:00 11/23/17 08:37 (Vasotec) 20 mg DAILY PO 11/23/17 09:00 11/23/17 08:38 (Imdur) 30 mg DAILY PO 11/23/17 09:00 11/23/17 08:37 (Lopressor) 50 mg BID PO 11/22/17 21:00 11/23/17 08:37 (Protonix) 40 mg DAILY PO 11/23/17 09:00 11/23/17 08:37 (Spiriva Inh) 18 mcg QID INH 11/22/17 21:00 (Theragran) 1 tab DAILY PO 11/23/17 09:00 11/23/17 08:37 (Lipitor) 40 mg HS PO 11/22/17 21:00 11/22/17 21:00 (Pill Splitter) 1 ea UNSCH PRN OTHER 11/22/17 19:15 (Ventolin Hfa Inh) 2 puff QID INH 11/22/17 21:00 Assessment and Plan Problem List: (1) Pacemaker ICD Codes: Z95.0 - Presence of cardiac pacemaker Plan: SP Micra insertion. Doing well will be DH Follow up as previously scheduled (2) Atrial fibrillation ICD Codes: I48.91 - Unspecified atrial fibrillation Plan: HR control On/off sinus (3) HTN (hypertension) ICD Codes: I10 - HTN (hypertension) Status: Acute Plan: SBP 120 Isidro Jefferson MD Nov 23, 2017 11:39
[2017-11-23] MEDS ORDERED: CEPH-460 PO (11:41)
--- NOTE | 2017-11-23 18:21 | EKG ---
Date Performed: 11/23/2017 Time Performed: 06:32:26 PTAGE: 76 years EKG: Sinus rhythm Left axis deviation Inferior infarct - age undetermined Poor R wave progression, consider precordial lead misplacement Abnormal ECG PREVIOUS TRACING : 11/22/2017 21.21 Compared to previous tracing, sinus rhythm has placed atria l fibrillation, incomplete right bundle branch block pattern is no longer evident. DOCTOR: Yordan Srinivasan Interpretating Date/Time 11/23/2017 18:19:49
--- NOTE | 2017-11-23 21:23 | EKG ---
Date Performed: 11/22/2017 Time Performed: 21:21:50 PTAGE: 76 years EKG: Possible Sinus rhythm with premature supraventricular complexes, cannot rule out atrial fibrillation. Demand pacing Left a xis deviation Inferior infarct - age undetermined Anterior infarct - age undetermined Lateral T wave changes are nonspecific Low QRS voltages in precordial leads Abnormal ECG PREVIOUS TRACING : 11/22/2017 14.33 Compared to previous tracing, premature supraventricular co mplexes are now present, ventricular demand pacing is now evident. DOCTOR: Yordan Srinivasan Interpretating Date/Time 11/23/2017 21:23:19
--- NOTE | 2017-11-23 21:41 | EKG ---
Date Performed: 11/22/2017 Time Performed: 14:33:24 PTAGE: 76 years EKG: Sinus rhythm . Left axis deviation Possible inferior and anterior infarct - age undetermined Lateral T wave change s are nonspecific Low QRS voltages in precordial leads Abnormal ECG PREVIOUS TRACING : 06/11/2017 11.18 No significant change from previous tracing noted. DOCTOR: Yordan Srinivasan Interpretating Date/Time 11/23/2017 21:40:18
--- NOTE | 2017-11-24 10:43 | MP ---
cc: Isidro Jefferson MD Bishop,Y DATE OF OPERATION: 11/22/2017 PROCEDURE PERFORMED; 1. Permanent pacemaker Micra implantation. 2. Loop recorder removal. INDICATIONS: Mr. 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 The risks, the nature and the benefit of the procedure clearly stated to him. Risks include pneumothorax, cardiac perforation, stroke, need for open heart surgery and even . Patient understood and agreed to proceed. PROCEDURE NOTE: After written informed consent was obtained, the patient was brought to the EP lab where he was prepped and draped in the usual sterile fashion. Conscious sedation was initiated and maintained throughout the procedure by anesthesiologist. Once sedation verified, the right inguinal area was anesthetized with 2% Xylocaine. Using modified Seldinger technique, the right femoral vein was cannulated on one occasion and a stiff Amplatz was advanced all the way to the superior vena cava . Then using the #11 blade scalpel, a less than a 1 cm incision was made at the entry point. 2-0 Ethibond sutures were placed around entry point in a pursestring fashion to prevent back bleeding. Then the area was progressively dilated using a #12 Thai, then a 16, then a 20 Thai. Subsequently, the sheath was advanced all the way to the inferior vena cava. Then the patient received 3000 units of heparin. Then the Micra delivery system was advanced. The Micra delivery system was advanced all the way to the right ventricular septum. Subsequently, the device was released. After adequate pacing and sensing threshold obtained, the suture was coiled, the system was released and the sheath and the dilator were removed. The 2-0 suture was tied at the exit point. Hemostasis was performed. At that point, I decided to proceed with a loop recorder removal. The left area was anesthetized with 2% Xylocaine. Using a #11 blade scalpel, a 1 cm incision was made, then the incision was then taken down to the fascial layer using blunt dissection. Once exposed, the loop was removed. At that point, the area was reapproximated using Dermabond and Steri-Strips. No incident to report. Blood loss minimal. 1. Explanted hardware: Loop recorder is [employer]. Please refer to previous dictation. 2. Implanted hardware: The implanted hardware is a [employer] model #[id number], serial #[id number]. 3. Threshold: The right ventricular pacing threshold in the bipolar mode was 0.75 volts at 0.24 milliseconds. Lead impedance ____ ohms, R-wave at 99.9 millivolt. 4. Settings: The device to the VVI 50. CONCLUSION: Successful Micra pacemaker insertion and loop removal. RECOMMENDATION: Patient is going to be transferred to the telemetry unit. He will be observed. When stable, will be discharged home. MD REKHA Jolley/BEATRIZ/anthony , 07:05 PM , 07:44 PM
== END 2017-11-23 11:57 | disposition home or self-care (01) ==
LOC: HCAT 12:44 → HDIC 12:45 → HCIS 20:58 → HCAT 11-23 11:57
PROVIDERS: ATTEND Internal Medicine Interventional Cardiology
DX: I11.0 Hypertensive heart disease with heart failure (principal); I50.9 Heart failure, unspecified; I49.5 Sick sinus syndrome; Z00.6 Encounter for examination for normal comparison and control in clinical research program; I48.0 Paroxysmal atrial fibrillation; I42.9 Cardiomyopathy, unspecified; R06.02 Shortness of breath; I25.2 Old myocardial infarction; F17.220 Nicotine dependence, chewing tobacco, uncomplicated; Z86.711 Personal history of pulmonary embolism; Z79.01 Long term (current) use of anticoagulants; Z79.82 Long term (current) use of aspirin
CPT/HCPCS: 00530; 0387T; 33284; 80048; 85025; 85610; 86850; 86900; 86901; 93005; C1786; J1644; J2250; J3010; 33207; Q9967